=== PATIENT | male | born 1995 | race Two or more races ===

== ENCOUNTER 2023-12-24 21:02 | Emergency (ER) | payer MEDICAID, OTHER ==
[~2023-12-24] VITALS: Ht 185.4 cm; Wt 113.0 kg
[2023-12-24 21:16] VITALS: BP 145/88; PULSE 94; RESP 18; O2SAT 96
== END 2023-12-24 23:34 | disposition left against medical advice (07) ==
LOC: ER 21:02
DX: S61.431A Puncture wound without foreign body of right hand, initial encounter (principal); Z53.21 Procedure and treatment not carried out due to patient leaving prior to being seen by health care provider; W54.0XXA Bitten by dog, initial encounter; Y93.89 Activity, other specified; Y92.89 Other specified places as the place of occurrence of the external cause; Y99.8 Other external cause status
CPT/HCPCS: 73130